=== PATIENT | male | born 1990 | race Caucasian/White ===

== ENCOUNTER 2016-03-24 12:28 | Emergency (ER) | payer SELFPAY ==
[~2016-03-24] VITALS: Ht 182.8 cm; Wt 83.9 kg
[~2016-03-24 12:28] MED LIST: AMBIEN10 M1 PO; ATIVAN1 MG PO; AUGMENTIN 875875 MG PO; BACTROBAN CREAM15 GM PO; BENTYL10 MG PO; CLINDAMYCIN HC300 MG PO; CLINDAMYCIN150 MG PO; CYCLOBENZAPRINE10 MG PO; DIPHENHYDRAMINE50 M1 PO; FLEXERIL10 MG PO; HYDROCODONE BIT1 T11 PO; IBUPROFEN800 MG PO; LEVAQUIN750 MG PO; MOTRIN800 MG PO; Medrol Dosepak4 MG PO; Motrin,Rufen800 MG PO; NAPROSYN500 MG PO; NASONEX0.05 MG/AC NS; NKHM; OMEPRAZOLE20 MG PO; Peridex 473 ML473 ML PO; SEROQUEL100 MG PO; SUNMARK OMEPRAZ20 M1 PO; TAMIFLU75 MG PO; TYLENOL500 MG PO; VICO10300 PO; VISTARIL25 M2 PO; VOLTAREN50 M1 PO; ZANTAC150 MG PO; ZOFRAN ODT4 MG PO; ZOFRAN ODT4 MG SL; ZOFRAN4 MG PO; ZOVIRAX400 MG PO; Zofran4 MG PO
[2016-03-24 13:01] VITALS: BP 110/67
[2016-03-24 13:29] LABS: BASO % 0.4 % (0.0-1.0); EOS # 0.1 10*3/uL (0.0-0.4); EOS % 2.3 % (1.0-4.0); HEMATOCRIT 40.6 % (42.0-52.0); HEMOGLOBIN 13.5 g/dl (14.0-18.0); LYMPH # 0.3 10*3/uL (1.3-4.4); LYMPH % 6.6 % (27.0-41.0); MEAN CELL VOLUME 88.1 fl (80.0-94.0); MEAN CORPUSCULAR HGB 29.3 pg (27.0-31.0); MEAN CORPUSCULAR HGB CONC 33.3 g/dl (33.0-37.0); MEAN PLATELET VOLUME 10.4 fl (9.6-12.3); MONO # 0.3 10*3/uL (0.1-1.0); NEUT # 4.1 10*3/uL (2.3-7.9); NEUT % 84.5 % (47.0-73.0); PLATELET COUNT AUTOMATED 137 10*3/uL (130-400); RED BLOOD COUNT 4.61 10*6/uL (4.50-5.90); RED CELL DISTRI WIDTH 12.5 % (0-14.5); WHITE BLOOD COUNT 4.9 10*3/uL (4.8-10.8)
[2016-03-24 13:41] LABS: ALKALINE PHOSPHATASE 123 U/L (45-117); BILIRUBIN, TOTAL 0.6 mg/dl (0.2-1.0); BUN 11 mg/dl (7-24); CARBON DIOXIDE 26 mmol/L (21-32); CHLORIDE 102 mmol/L (98-107); EST GLOM FILT AFRICAN AMERICAN > 60 ml/min; GLUCOSE 86 mg/dL (65-99); POTASSIUM 3.7 mmol/L (3.5-5.1); SGOT/AST 15 IU/L (3-35); SGPT/ALT 21 U/L (12-78); SODIUM 136 mmol/L (136-145); TOTAL PROTEIN 7.5 gm/dL (6.4-8.2)
[2016-03-24] MEDS ORDERED: NAPROSYN500 MG PO (15:08)
[2016-03-24] MEDS ORDERED: ZOFRAN4 MG PO (15:08)
== END 2016-03-24 15:23 | disposition home or self-care (01) ==
LOC: ED 12:28
PROVIDERS: Nurse Practitioner Family
DX: B34.9 Viral infection, unspecified (principal); F17.200 Nicotine dependence, unspecified, uncomplicated; F41.9 Anxiety disorder, unspecified; Z88.0 Allergy status to penicillin

== ENCOUNTER 2016-04-16 20:22 | Emergency (ER) | payer MEDICAID ==
[~2016-04-16] VITALS: Ht 182.8 cm; Wt 81.6 kg
[2016-04-16 20:27] VITALS: BP 124/74
[2016-04-16] MEDS ORDERED: ANAPROX DS550 MG PO (22:44)
== END 2016-04-16 22:46 | disposition home or self-care (01) ==
LOC: ED 20:22
DX: S70.01XA Contusion of right hip, initial encounter (principal); F17.200 Nicotine dependence, unspecified, uncomplicated; Z88.0 Allergy status to penicillin; W00.0XXA Fall on same level due to ice and snow, initial encounter; Y93.89 Activity, other specified; Y92.9 Unspecified place or not applicable; Y99.9 Unspecified external cause status

== ENCOUNTER 2017-03-31 11:21 | Emergency (ER) | payer MEDICAID ==
[~2017-03-31] VITALS: Ht 182.8 cm; Wt 83.9 kg
[~2017-03-31 11:21] MED LIST changes: +ANAPROX DS550 MG PO
[2017-03-31 11:46] VITALS: BP 136/77
[2017-03-31] MEDS ORDERED: LIDEX 0.05% CRE15 GM T (12:09)
== END 2017-03-31 12:41 | disposition home or self-care (01) ==
LOC: ED 11:21
DX: R21 Rash and other nonspecific skin eruption (principal); R03.0 Elevated blood-pressure reading, without diagnosis of hypertension; Z88.0 Allergy status to penicillin

== ENCOUNTER 2017-08-01 12:00 | Emergency (ER) | payer MEDICAID, OTHER ==
[~2017-08-01] VITALS: Ht 182.8 cm; Wt 81.6 kg
[~2017-08-01 12:00] MED LIST changes: +LIDEX 0.05% CRE15 GM T
[2017-08-01 12:09] VITALS: BP 135/84
== END 2017-08-01 13:54 | disposition left against medical advice (07) ==
LOC: ED 12:00
DX: R51 Headache (principal); Z88.0 Allergy status to penicillin

== ENCOUNTER 2017-12-09 10:37 | Emergency (ER) | payer OTHER ==
[~2017-12-09] VITALS: Ht 182.8 cm; Wt 83.9 kg
--- NOTE | ~2017-12-09 | EKG ---
[place], [place] ELECTROCARDIOGRAM REPORT NAME: DERIAN BRODERICK UNIT #: [id number] ROOM: DOCTOR: EPIPHANY DRAFT REPORT BIRTHDATE: [birth year] [facility] Test Date: 2017-12-09 Test Time: 11:07:13 Pat Name: DERIAN BRODERICK Department: Room: Gender: M Supervisor Cell Room: PAMELA : 1990 Requested By: TOSIN RODRIGUEZ Order Number: [id number] Reading MD: Amira Dowling MD Measurements Intervals [place] Rate: 70 P: 28 ID: [id number] QRS: 51 QRSD: 76 T: 6 QT: 383 QTc: 414 Interpretive Statements Sinus rhythm No previous ECG available for comparison Electronically Signed On 12-10-2017 10:31:31 PDT by Amira Dowling MD CM:EKGRPT:ELECTROCARDIOGRAM REPORT [id number] TOSIN RODRIGUEZ EPIPHANY DRAFT REPORT TOSIN RODRIGUEZ
[2017-12-09 10:42] VITALS: BP 127/85
[2017-12-09 11:12] LABS: BASO % 0.1 % (0.0-1.0); EOS # 0.2 10*3/uL (0.0-0.4); EOS % 2.6 % (1.0-4.0); HEMATOCRIT 42.3 % (42.0-52.0); HEMOGLOBIN 14.1 g/dl (14.0-18.0); LYMPH # 1.4 10*3/uL (1.3-4.4); LYMPH % 15.2 % (27.0-41.0); MEAN CELL VOLUME 88.7 fl (80.0-94.0); MEAN CORPUSCULAR HGB 29.6 pg (27.0-31.0); MEAN CORPUSCULAR HGB CONC 33.3 g/dl (33.0-37.0); MEAN PLATELET VOLUME 9.9 fl (9.6-12.3); MONO # 0.6 10*3/uL (0.1-1.0); MONO % 6.9 % (3.0-9.0); NEUT # 6.7 10*3/uL (2.3-7.9); PLATELET COUNT AUTOMATED 228 10*3/uL (130-400); RED BLOOD COUNT 4.77 10*6/uL (4.50-5.90); WHITE BLOOD COUNT 8.9 10*3/uL (4.8-10.8)
[2017-12-09 11:18] LABS: INTERNATIONAL NORM RATIO 1.2 (2.0-3.5)
[2017-12-09 11:29] LABS: ALBUMIN 3.7 gm/dl (3.1-4.5); BUN 6 mg/dl (7-24); CHLORIDE 106 mmol/L (98-107); CREATININE 0.84 mg/dL (0.70-1.30); POTASSIUM 4.2 mmol/L (3.5-5.1); SGOT/AST 10 IU/L (3-35); SGPT/ALT 16 U/L (12-78); SODIUM 139 mmol/L (136-145); TOTAL PROTEIN 7.5 gm/dL (6.4-8.2)
[2017-12-09 11:31] LABS: ALKALINE PHOSPHATASE 140 U/L (45-117)
[2017-12-09 11:34] LABS: TROPONIN I < 0.015 ng/ml (<0.045)
[2017-12-09] MEDS ORDERED: VISTARIL25 M2 PO (12:31)
== END 2017-12-09 12:31 | disposition home or self-care (01) ==
LOC: ED 10:37
PROVIDERS: Nurse Practitioner Family
DX: F41.9 Anxiety disorder, unspecified (principal); Z88.0 Allergy status to penicillin

== ENCOUNTER 2017-12-14 08:10 | Emergency (ER) | payer OTHER ==
[~2017-12-14] VITALS: Ht 182.8 cm; Wt 83.9 kg
[2017-12-14 08:11] VITALS: BP 136/76
[2017-12-14] MEDS ORDERED: MEDROL DOSEPAK4 MG PO (08:35)
[2017-12-14] MEDS ORDERED: Motrin,Rufen800 MG PO (08:35)
== END 2017-12-14 08:48 | disposition home or self-care (01) ==
LOC: ED 08:10
DX: L30.9 Dermatitis, unspecified (principal); Z88.0 Allergy status to penicillin

== ENCOUNTER 2018-12-08 12:18 | Emergency (ER) | payer OTHER ==
[~2018-12-08] VITALS: Ht 182.8 cm; Wt 86.2 kg
[~2018-12-08 12:18] MED LIST changes: +MEDROL DOSEPAK4 MG PO; +PREDNISONE20 M1 PO; +ZYRTEC ALLERGY10 MG PO
[2018-12-08 12:20] VITALS: BP 125/78
== END 2018-12-08 14:07 | disposition home or self-care (01) ==
LOC: ED 12:18
DX: S09.90XA Unspecified injury of head, initial encounter (principal); Z88.0 Allergy status to penicillin; W20.8XXA Other cause of strike by thrown, projected or falling object, initial encounter; Y93.89 Activity, other specified; Y92.098 Other place in other non-institutional residence as the place of occurrence of the external cause; Y99.8 Other external cause status

== ENCOUNTER 2019-02-17 17:21 | Emergency (ER) | payer OTHER ==
[~2019-02-17] VITALS: Ht 182.8 cm; Wt 81.6 kg
[2019-02-17] MEDS ORDERED: DIPHENHYDRAMINE25 M2 PO (17:25)
[2019-02-17 17:49] LABS: BASO % 0.1 % (0.0-1.0); EOS # 0.1 10*3/uL (0.0-0.4); EOS % 0.8 % (1.0-4.0); HEMOGLOBIN 13.9 g/dl (14.0-18.0); LYMPH # 1.4 10*3/uL (1.3-4.4); LYMPH % 13.3 % (27.0-41.0); MEAN CELL VOLUME 84.2 fl (80.0-94.0); MEAN CORPUSCULAR HGB 28.5 pg (27.0-31.0); MEAN CORPUSCULAR HGB CONC 33.9 g/dl (33.0-37.0); MONO # 0.4 10*3/uL (0.1-1.0); MONO % 3.3 % (3.0-9.0); NEUT # 8.7 10*3/uL (2.3-7.9); NEUT % 82.2 % (47.0-73.0); PLATELET COUNT AUTOMATED 183 10*3/uL (130-400); RED BLOOD COUNT 4.87 10*6/uL (4.50-5.90); RED CELL DISTRI WIDTH 13.4 % (0-14.5); WHITE BLOOD COUNT 10.6 10*3/uL (4.8-10.8)
[2019-02-17 18:18] LABS: ALBUMIN 3.3 gm/dl (3.1-4.5); ALKALINE PHOSPHATASE 118 U/L (45-117); BUN 10 mg/dl (7-24); CHLORIDE 98 mmol/L (98-107); CREATININE 1.18 mg/dL (0.70-1.30); LIPASE 28 U/L (73-393); POTASSIUM 3.6 mmol/L (3.5-5.1); SGOT/AST 13 IU/L (3-35); SGPT/ALT 13 U/L (12-78); SODIUM 129 mmol/L (136-145); TOTAL PROTEIN 7.8 gm/dL (6.4-8.2)
[2019-02-17 19:39] VITALS: BP 94/45
[2019-02-17] MEDS ORDERED: VISTARIL25 MG PO (20:22)
== END 2019-02-17 20:27 | disposition home or self-care (01) ==
LOC: ED 17:21
PROVIDERS: Nurse Practitioner Family
DX: L50.9 Urticaria, unspecified (principal); R11.2 Nausea with vomiting, unspecified; R19.7 Diarrhea, unspecified; R10.13 Epigastric pain; R50.9 Fever, unspecified; F17.200 Nicotine dependence, unspecified, uncomplicated; Z88.0 Allergy status to penicillin

== ENCOUNTER 2020-03-01 10:42 | Emergency (ER) | payer OTHER ==
[~2020-03-01] VITALS: Ht 182.8 cm; Wt 86.2 kg
[~2020-03-01 10:42] MED LIST changes: +DIPHENHYDRAMINE25 M2 PO; +VISTARIL25 MG PO
[2020-03-01 10:57] VITALS: BP 130/68
[2020-03-01] MEDS ORDERED: Motrin,Rufen800 MG PO (11:19)
[2020-03-01] MEDS ORDERED: VISTARIL25 MG PO (11:19)
[2020-03-01] MEDS ORDERED: PREDNISONE50 MG PO (11:19)
== END 2020-03-01 11:45 | disposition home or self-care (01) ==
LOC: ED 10:42
DX: L50.9 Urticaria, unspecified (principal); Z88.0 Allergy status to penicillin

== ENCOUNTER 2020-05-03 10:28 | Emergency (ER) | payer OTHER ==
[~2020-05-03] VITALS: Wt 86.2 kg
[~2020-05-03 10:28] MED LIST changes: +PREDNISONE50 MG PO
[2020-05-03 11:06] LABS: BASO % 0.2 % (0.0-1.0); EOS # 0.4 10*3/uL (0.0-0.4); EOS % 3.7 % (1.0-4.0); HEMATOCRIT 41.7 % (42.0-52.0); LYMPH # 2.4 10*3/uL (1.3-4.4); LYMPH % 22.9 % (27.0-41.0); MEAN CORPUSCULAR HGB 27.6 pg (27.0-31.0); MEAN CORPUSCULAR HGB CONC 32.1 g/dl (33.0-37.0); MEAN PLATELET VOLUME 9.3 fl (9.6-12.3); MONO # 0.6 10*3/uL (0.1-1.0); MONO % 5.5 % (3.0-9.0); NEUT # 7.1 10*3/uL (2.3-7.9); NEUT % 67.3 % (47.0-73.0); PLATELET COUNT AUTOMATED 325 10*3/uL (130-400); RED BLOOD COUNT 4.85 10*6/uL (4.50-5.90); RED CELL DISTRI WIDTH 12.8 % (0-14.5); WHITE BLOOD COUNT 10.5 10*3/uL (4.8-10.8)
[2020-05-03 11:20] LABS: ALBUMIN 2.9 gm/dl (3.1-4.5); ALKALINE PHOSPHATASE 108 U/L (45-117); BUN 12 mg/dl (7-24); CHLORIDE 111 mmol/L (98-107); CREATININE 0.84 mg/dL (0.70-1.30); LIPASE 49 U/L (73-393); POTASSIUM 3.9 mmol/L (3.5-5.1); SGOT/AST 5 IU/L (3-35); SGPT/ALT 14 U/L (12-78); SODIUM 141 mmol/L (136-145)
[2020-05-03 15:10] VITALS: BP 128/72
[2020-05-03] MEDS ORDERED: AVPAK AZITHROM250 MG PO (15:23)
== END 2020-05-03 15:37 | disposition home or self-care (01) ==
LOC: ED 10:28
PROVIDERS: Nurse Practitioner Family
DX: J18.9 Pneumonia, unspecified organism (principal); F17.200 Nicotine dependence, unspecified, uncomplicated; Z88.0 Allergy status to penicillin; Z79.899 Other long term (current) drug therapy; Z20.822 Contact with and (suspected) exposure to COVID-19

== ENCOUNTER 2020-08-29 21:53 | Emergency (ER) | payer OTHER ==
[~2020-08-29] VITALS: Wt 86.2 kg
[~2020-08-29 21:53] MED LIST changes: +AVPAK AZITHROM250 MG PO
[2020-08-29 21:59] VITALS: BP 135/78
== END 2020-08-30 00:10 | disposition home or self-care (01) ==
LOC: ED 21:53
DX: S46.911A Strain of unspecified muscle, fascia and tendon at shoulder and upper arm level, right arm, initial encounter (principal); F41.9 Anxiety disorder, unspecified; Z88.0 Allergy status to penicillin; Z79.899 Other long term (current) drug therapy; Z79.2 Long term (current) use of antibiotics; X58.XXXA Exposure to other specified factors, initial encounter; Y93.89 Activity, other specified; Y92.89 Other specified places as the place of occurrence of the external cause; Y99.8 Other external cause status

== ENCOUNTER 2020-12-19 20:54 | Emergency (ER) | payer OTHER ==
[~2020-12-19] VITALS: Ht 182.8 cm; Wt 88.5 kg
[2020-12-19 21:03] VITALS: BP 118/58
[2020-12-19 22:07] LABS: EOS # 0.1 10*3/uL (0.0-0.4); EOS % 1.5 % (1.0-4.0); HEMATOCRIT 37.9 % (42.0-52.0); LYMPH # 0.4 10*3/uL (1.3-4.4); LYMPH % 6.2 % (27.0-41.0); MEAN CELL VOLUME 83.8 fl (80.0-94.0); MEAN CORPUSCULAR HGB 27.4 pg (27.0-31.0); MEAN CORPUSCULAR HGB CONC 32.7 g/dl (33.0-37.0); MEAN PLATELET VOLUME 10.2 fl (9.6-12.3); MONO # 0.3 10*3/uL (0.1-1.0); MONO % 4.7 % (3.0-9.0); NEUT # 5.9 10*3/uL (2.3-7.9); NEUT % 87.3 % (47.0-73.0); PLATELET COUNT AUTOMATED 207 10*3/uL (130-400); RED BLOOD COUNT 4.52 10*6/uL (4.50-5.90); RED CELL DISTRI WIDTH 13.2 % (0-14.5); WHITE BLOOD COUNT 6.8 10*3/uL (4.8-10.8)
[2020-12-19 22:23] LABS: ALBUMIN 3.3 gm/dl (3.1-4.5); ALKALINE PHOSPHATASE 113 U/L (45-117); BUN 11 mg/dl (7-24); CHLORIDE 103 mmol/L (98-107); CREATININE 0.91 mg/dL (0.70-1.30); POTASSIUM 3.6 mmol/L (3.5-5.1); SGOT/AST 12 IU/L (3-35); SGPT/ALT 18 U/L (12-78); SODIUM 132 mmol/L (136-145); TOTAL PROTEIN 7.4 gm/dL (6.4-8.2)
== END 2020-12-19 23:47 | disposition home or self-care (01) ==
LOC: ED 20:54
PROVIDERS: Internal Medicine
DX: B34.9 Viral infection, unspecified (principal); Z88.0 Allergy status to penicillin

== ENCOUNTER → 2020-12-21 | Outpatient (CLI) | payer OTHER | END | disposition home or self-care (01) | LOC: COVID19 16:25 | PROVIDERS: ATTEND Internal Medicine | DX: U07.1 COVID-19 (principal) ==